=== PATIENT | male | born 1985 | race Caucasian/White ===

== ENCOUNTER 2016-12-15 13:22 | Emergency (ER) | payer OTHER ==
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
[~2016-12-15 13:22] MED LIST: MOBIC PO; NABUMETONE PO; ULTRACET TABLET1 TAB PO
== END 2016-12-15 15:00 | disposition home or self-care (01) ==
LOC: CFTX 13:22
DX: S22.32XA Fracture of one rib, left side, initial encounter for closed fracture (principal); F17.210 Nicotine dependence, cigarettes, uncomplicated; Z88.1 Allergy status to other antibiotic agents; Z88.8 Allergy status to other drugs, medicaments and biological substances; V49.40XA Driver injured in collision with unspecified motor vehicles in traffic accident, initial encounter; Y92.488 Other paved roadways as the place of occurrence of the external cause
CPT/HCPCS: 71020; 99283